=== PATIENT | female | born 1965 | race Caucasian/White ===

== ENCOUNTER 2022-05-28 17:02 | Inpatient (IN) | payer OTHER ==
[~2022-05-28] VITALS: Ht 167.6 cm; Wt 78.0 kg
[2022-05-28 20:53] LABS: HEMOGLOBIN 9.4 gm/dl (12.3-15.3); RED BLOOD COUNT 3.63 M/UL (4.00-5.10); WHITE BLOOD COUNT 9.1 K/UL (4.5-11.0)
[2022-05-28 21:27] LABS: BUN/CREATININE RATIO 13 (0-10)
[2022-05-29 06:00] LABS: HEMOGLOBIN 7.9 gm/dl (12.3-15.3)
[2022-05-29 06:05] LABS: WHITE BLOOD COUNT 6.5 K/UL (4.5-11.0)
[2022-05-29] MEDS ORDERED: FUROSEMIDE80 MG PO (11:22)
[2022-05-29] MEDS ORDERED: ELIQUIS5 MG PO (11:22)
[2022-05-29] MEDS ORDERED: HYDROCHLOROTHIA25 MG PO (11:23)
[2022-05-29] MEDS ORDERED: VITAMIN D21250 MCG PO (11:23)
[2022-05-29] MEDS ORDERED: SODIUM BICARBO650 M1 PO (11:24)
[2022-05-29] MEDS ORDERED: LANTUS SOL100 UNIT/1 SQ (11:25)
[2022-05-29] MEDS ORDERED: PRISTIQ 50 MG T50 MG PO (11:34)
[2022-05-29] MEDS ORDERED: GABAPENTIN400 MG PO (11:35)
[2022-05-29] MEDS ORDERED: FERROUS SULFAT325 MG PO (15:35)
[2022-05-30 06:00] LABS: HEMOGLOBIN 7.1 gm/dl (12.3-15.3); WHITE BLOOD COUNT 6.1 K/UL (4.5-11.0)
[2022-05-30 06:06] LABS: RED BLOOD COUNT 2.69 M/UL (4.00-5.10)
[2022-05-31 04:41] LABS: HEMOGLOBIN 7.4 gm/dl (12.3-15.3); RED BLOOD COUNT 2.82 M/UL (4.00-5.10); WHITE BLOOD COUNT 6.2 K/UL (4.5-11.0)
--- NOTE | 2022-05-31 07:10 | NUR ---
CONTACTED PHARMACY TO VERIFY VACOMYCINE DOSES DUE TO VANC TROUGH OF 9.2. PER JOCEYLNE I WAS INSTRUCTED TO GIVE 0600 DOSE ORDERED AND AFTER ANDERS IN PHARMACY ARRIVES HE WILL VERIFY DOSAGE AND HE WILL ADJUST NEEDED.
--- NOTE | 2022-05-31 17:14 | NUR ---
DRESING CHANGED PERDR ORDER.
[2022-06-01 02:58] LABS: HEMOGLOBIN 7.7 gm/dl (12.3-15.3); RED BLOOD COUNT 2.89 M/UL (4.00-5.10); WHITE BLOOD COUNT 5.1 K/UL (4.5-11.0)
[2022-06-02 04:08] LABS: HEMOGLOBIN 7.5 gm/dl (12.3-15.3); RED BLOOD COUNT 2.87 M/UL (4.00-5.10); WHITE BLOOD COUNT 5.7 K/UL (4.5-11.0)
[2022-06-03 09:26] LABS: HEMOGLOBIN 7.8 gm/dl (12.3-15.3); RED BLOOD COUNT 3.02 M/UL (4.00-5.10); WHITE BLOOD COUNT 5.3 K/UL (4.5-11.0)
[2022-06-04 06:37] LABS: HEMOGLOBIN 7.5 gm/dl (12.3-15.3); RED BLOOD COUNT 2.85 M/UL (4.00-5.10); WHITE BLOOD COUNT 4.7 K/UL (4.5-11.0)
[2022-06-05 06:26] LABS: HEMOGLOBIN 7.5 gm/dl (12.3-15.3); RED BLOOD COUNT 2.92 M/UL (4.00-5.10); WHITE BLOOD COUNT 4.1 K/UL (4.5-11.0)
[2022-06-06 06:48] LABS: HEMOGLOBIN 7.2 gm/dl (12.3-15.3); RED BLOOD COUNT 2.8 M/UL (4.00-5.10); WHITE BLOOD COUNT 4.4 K/UL (4.5-11.0)
[2022-06-06 16:28] LABS: HEMOGLOBIN 7.9 gm/dl (12.3-15.3)
[2022-06-07 05:17] LABS: HEMOGLOBIN 7.3 gm/dl (12.3-15.3); RED BLOOD COUNT 2.83 M/UL (4.00-5.10); WHITE BLOOD COUNT 4.4 K/UL (4.5-11.0)
[2022-06-08 07:20] LABS: HEMOGLOBIN 7.2 gm/dl (12.3-15.3); RED BLOOD COUNT 2.88 M/UL (4.00-5.10); WHITE BLOOD COUNT 3.6 K/UL (4.5-11.0)
[2022-06-09 06:14] LABS: HEMOGLOBIN 7.5 gm/dl (12.3-15.3); RED BLOOD COUNT 2.9 M/UL (4.00-5.10); WHITE BLOOD COUNT 3.7 K/UL (4.5-11.0)
[2022-06-09] MEDS ORDERED: AMLODIPINE BESYL5 MG PO (15:33)
[2022-06-09] MEDS ORDERED: CHRONULAC20 GM/30 M PO (15:33)
[2022-06-09] MEDS ORDERED: STIMULANT LAXA1 EACH PO (15:33)
[2022-06-09] MEDS ORDERED: PROTONIX 40 MG40 M1 PO (15:33)
[2022-06-09] MEDS ORDERED: TRAMADOL HCL50 MG PO (15:43)
[2022-06-09] MEDS ORDERED: INVANZ 1 GM VIAL1 GM IV (15:43)
[2022-06-09] MEDS ORDERED: ZYVOX IV 6600 MG/300 INJ (15:43)
[2022-06-09] MEDS ORDERED: NORVASC10 MG PO (15:53)
[2022-06-10 07:17] LABS: RED BLOOD COUNT 2.69 M/UL (4.00-5.10); WHITE BLOOD COUNT 3.7 K/UL (4.5-11.0)
[2022-06-10 07:18] LABS: HEMOGLOBIN 6.9 gm/dl (12.3-15.3)
[2022-06-10 11:14] LABS: RHEUMATOID ARTHRITIS FACTOR <10.0 IU/mL (<14.0)
[2022-06-10 13:09] LABS: ANTI-CENTROMERE B ANTIBODIES <0.2 AI (0.0-0.9); ANTI-DNA (DS) AB QN 1 IU/mL (0-9); ANTI-JO-1 <0.2 AI (0.0-0.9); ANTICHROMATIN ANTIBODIES <0.2 AI (0.0-0.9); ANTIRIBOSOMAL P ANTIBODIES <0.2 AI (0.0-0.9); ANTISCLERODERMA-70 ANTIBODIES 0.2 AI (0.0-0.9); RNP ANTIBODIES <0.2 AI (0.0-0.9); SJOGREN'S ANTI-SS-A <0.2 AI (0.0-0.9); SJOGREN'S ANTI-SS-B <0.2 AI (0.0-0.9); SMITH ANTIBODIES <0.2 AI (0.0-0.9); SMITH/RNP ANTIBODIES <0.2 AI (0.0-0.9)
[2022-06-10] MEDS ORDERED: TYLENOL325 MG PO (19:41)
[2022-06-11 06:33] LABS: HEMOGLOBIN 8.1 gm/dl (12.3-15.3); WHITE BLOOD COUNT 4.2 K/UL (4.5-11.0)
[2022-06-11 06:37] LABS: RED BLOOD COUNT 3.12 M/UL (4.00-5.10)
--- NOTE | 2022-06-11 23:33 | NUR ---
CALLED REPORT TO [facility]. EMS HAS BEEN CONTACTED, CURRENTLY AWAITING THEIR ARRIVAL.
== END 2022-06-12 00:11 | DRG 299 ==
LOC: ER1 17:02 → MED SURG 4 05-29 02:52 → CDU 05-29 02:52 → MED SURG 4 05-29 07:45
PROVIDERS: Family Medicine; Internal Medicine; Physician Assistant; Registered Nurse; Surgery; ADMIT Internal Medicine
PROC: 0J9R00Z Drainage of Left Foot Subcutaneous Tissue and Fascia with Drainage Device, Open Approach (ICD-10-PCS; principal; 2022-06-02 09:04)
DX: E11.52 Type 2 diabetes mellitus with diabetic peripheral angiopathy with gangrene (principal); A48.0 Gas gangrene; D68.32 Hemorrhagic disorder due to extrinsic circulating anticoagulants; N17.9 Acute kidney failure, unspecified; L03.116 Cellulitis of left lower limb; Z20.822 Contact with and (suspected) exposure to COVID-19; I82.402 Acute embolism and thrombosis of unspecified deep veins of left lower extremity; I12.9 Hypertensive chronic kidney disease with stage 1 through stage 4 chronic kidney disease, or unspecified chronic kidney disease; F41.9 Anxiety disorder, unspecified; B95.62 Methicillin resistant Staphylococcus aureus infection as the cause of diseases classified elsewhere; N18.30 Chronic kidney disease, stage 3 unspecified; D63.1 Anemia in chronic kidney disease; E11.40 Type 2 diabetes mellitus with diabetic neuropathy, unspecified; E55.9 Vitamin D deficiency, unspecified; K21.9 Gastro-esophageal reflux disease without esophagitis; F32.A Depression, unspecified; G47.33 Obstructive sleep apnea (adult) (pediatric); K59.00 Constipation, unspecified; Z79.4 Long term (current) use of insulin; Z86.711 Personal history of pulmonary embolism; Z79.01 Long term (current) use of anticoagulants; Z80.42 Family history of malignant neoplasm of prostate; Z80.1 Family history of malignant neoplasm of trachea, bronchus and lung; Z88.8 Allergy status to other drugs, medicaments and biological substances; Z98.891 History of uterine scar from previous surgery; Z90.49 Acquired absence of other specified parts of digestive tract; Z98.51 Tubal ligation status
CPT/HCPCS: 36415; 36430; 71046; 73564; 73630; 73700; 73718; 80048; 80053; 80202; 81001; 82040; 82550; 82553; 82565; 82607; 82728; 82747; 82962; 83036; 83516; 83540; 83550; 83605; 83921; 84484; 84550; 85014; 85018; 85025; 85027; 85379; 85652; 86140; 86431; 86850; 86900; 86901; 86920; 87040; 87070; 87077; 87086; 87186; 87205; 93971; 96365; 96367; 99285; J0696; J1100; J1335; J1650; J2001; J2020; J2250; J2270; J2405; J2543; J2704; J3010; J3370; J7070; P9016; P9047; U0002

== ENCOUNTER 2022-06-23 10:03 | Inpatient (IN) | payer OTHER ==
[~2022-06-23] VITALS: Ht 167.6 cm; Wt 101.8 kg
[~2022-06-23 10:03] MED LIST: AMLODIPINE BESYL5 MG PO; CHRONULAC20 GM/30 M PO; ELIQUIS5 MG PO; FERROUS SULFAT325 MG PO; FUROSEMIDE80 MG PO; GABAPENTIN400 MG PO; HYDROCHLOROTHIA25 MG PO; INVANZ 1 GM VIAL1 GM IV; LANTUS SOL100 UNIT/1 SQ; NORVASC10 MG PO; PRISTIQ 50 MG T50 MG PO; PROTONIX 40 MG40 M1 PO; SODIUM BICARBO650 M1 PO; STIMULANT LAXA1 EACH PO; TRAMADOL HCL50 MG PO; TYLENOL325 MG PO; ZYVOX IV 6600 MG/300 INJ
[2022-06-23 16:13] LABS: HEMOGLOBIN 9.1 gm/dl (12.3-15.3); RED BLOOD COUNT 3.31 M/UL (4.00-5.10); WHITE BLOOD COUNT 13.8 K/UL (4.5-11.0)
[2022-06-23] MEDS ORDERED: FUROSEMIDE80 MG PO (16:16)
[2022-06-24 05:14] LABS: WHITE BLOOD COUNT 13.9 K/UL (4.5-11.0)
[2022-06-24 05:15] LABS: RED BLOOD COUNT 3.68 M/UL (4.00-5.10)
[2022-06-24] MEDS ORDERED: VITAMIN D21250 MCG PO (11:23)
[2022-06-24] MEDS ORDERED: GABAPENTIN400 MG PO (11:24)
[2022-06-24] MEDS ORDERED: ZOFRAN ODT 4 MG4 MG PO ×2 (11:24→11:25)
[2022-06-24] MEDS ORDERED: MULTIPLE VITAM1 EAC1 PO (11:26)
[2022-06-24] MEDS ORDERED: PROTONIX40 MG PO (11:27)
[2022-06-24] MEDS ORDERED: SENNA-DOCUSATE1 EACH PO (11:28)
[2022-06-24] MEDS ORDERED: LACTULOSE20 GM/30 M PO (11:30)
[2022-06-24] MEDS ORDERED: TYLENOL325 MG PO (11:31)
[2022-06-24] MEDS ORDERED: HUMALOG100 UNIT/1 SC (11:31)
[2022-06-24] MEDS ORDERED: SEMGLEE (Y100 UNIT/1 SQ (11:32)
[2022-06-24] MEDS ORDERED: AMLODIPINE BESY10 MG PO (11:33)
[2022-06-24] MEDS ORDERED: METOPROLOL TART25 MG PO (11:33)
[2022-06-24] MEDS ORDERED: KLONOPIN0.5 MG PO (11:34)
[2022-06-24 17:36] LABS: BODY FLUID SOURCE PERITONEAL
[2022-06-24 17:37] LABS: MONONUCLEAR CELLS 50.7 (75-100); POLYMORPHONUCLEAR % 49.3 (0-25); RBC (AUTOMATED) 5500 (0-100000); WBC (AUTOMATED) 1204 (0-500)
[2022-06-24 17:54] LABS: BODY FLUID SOURCE BRONCH RIGHT LUNG
[2022-06-25 04:56] LABS: HEMOGLOBIN 9.5 gm/dl (12.3-15.3); RED BLOOD COUNT 3.52 M/UL (4.00-5.10)
[2022-06-25 05:15] LABS: WHITE BLOOD COUNT 7.1 K/UL (4.5-11.0)
[2022-06-26 06:43] LABS: WHITE BLOOD COUNT 6.7 K/UL (4.5-11.0)
[2022-06-26 06:47] LABS: RED BLOOD COUNT 2.71 M/UL (4.00-5.10)
[2022-06-27 10:02] LABS: RED BLOOD COUNT 3.28 M/UL (4.00-5.10)
[2022-06-27 10:03] LABS: WHITE BLOOD COUNT 7.9 K/UL (4.5-11.0)
[2022-06-27 20:03] LABS: BUN/CREATININE RATIO 41 (0-10)
[2022-06-28 04:20] LABS: HEMOGLOBIN 8.8 gm/dl (12.3-15.3); RED BLOOD COUNT 3.32 M/UL (4.00-5.10); WHITE BLOOD COUNT 6.9 K/UL (4.5-11.0)
[2022-06-28 04:45] LABS: BUN/CREATININE RATIO 40 (0-10)
[2022-06-29 06:07] LABS: HEMOGLOBIN 9.4 gm/dl (12.3-15.3); RED BLOOD COUNT 3.5 M/UL (4.00-5.10); WHITE BLOOD COUNT 7.5 K/UL (4.5-11.0)
[2022-06-30 03:58] LABS: RED BLOOD COUNT 3.38 M/UL (4.00-5.10); WHITE BLOOD COUNT 7.8 K/UL (4.5-11.0)
[2022-07-01 08:48] LABS: HEMOGLOBIN 9.7 gm/dl (12.3-15.3); RED BLOOD COUNT 3.56 M/UL (4.00-5.10); WHITE BLOOD COUNT 6.3 K/UL (4.5-11.0)
[2022-07-02 06:35] LABS: RED BLOOD COUNT 3.31 M/UL (4.00-5.10); WHITE BLOOD COUNT 5.1 K/UL (4.5-11.0)
[2022-07-03 07:20] LABS: HEMOGLOBIN 8.8 gm/dl (12.3-15.3); RED BLOOD COUNT 3.35 M/UL (4.00-5.10); WHITE BLOOD COUNT 4.5 K/UL (4.5-11.0)
--- NOTE | 2022-07-03 18:30 | NUR ---
1556- NOTIFIED DR. MAJANO OF POTASSIUM 5.8. ORDER TO NOTIFIED DR GOODMAN.
--- NOTE | 2022-07-03 19:03 | NUR ---
1630- NOTIFIED DR GOODMAN OF POTASSIUM LEVEL 5.8. NO NEW ORDERS.
--- NOTE | 2022-07-03 19:04 | NUR ---
1634- NOTIFIED DR. MAJANO OF NO NEW ORDERS FROM DR. GOODMAN. NEW ORDERS NOTED.
[2022-07-04 07:03] LABS: HEMOGLOBIN 8.3 gm/dl (12.3-15.3); RED BLOOD COUNT 3.08 M/UL (4.00-5.10); WHITE BLOOD COUNT 5.6 K/UL (4.5-11.0)
--- NOTE | 2022-07-04 07:27 | NUR ---
CRITICAL POTASSIUM 6.1 CALLED PER LAB. BERNA JOHNSON MADE AWARE OF POTASSIUM 6.1 AFTER 2 DOSES OF KAYEXLATE. PREVIOUS POTASSIUM 7.3. NO NEW ORDERS AT THIS TIME.
[2022-07-05 04:44] LABS: HEMOGLOBIN 8.5 gm/dl (12.3-15.3); RED BLOOD COUNT 3.13 M/UL (4.00-5.10); WHITE BLOOD COUNT 5.5 K/UL (4.5-11.0)
[2022-07-06 07:01] LABS: HEMOGLOBIN 8.3 gm/dl (12.3-15.3); RED BLOOD COUNT 3.05 M/UL (4.00-5.10); WHITE BLOOD COUNT 4.7 K/UL (4.5-11.0)
[2022-07-06] MEDS ORDERED: FUROSEMIDE20 MG PO (09:25)
[2022-07-07 06:23] LABS: HEMOGLOBIN 9.1 gm/dl (12.3-15.3); WHITE BLOOD COUNT 4.5 K/UL (4.5-11.0)
[2022-07-07 06:39] LABS: RED BLOOD COUNT 3.38 M/UL (4.00-5.10)
[2022-07-07] MEDS ORDERED: LOKELMA5 GM PO (09:05)
[2022-07-07] MEDS ORDERED: BUMETANIDE1 MG PO (09:05)
--- NOTE | 2022-07-07 12:08 | NUR ---
1208- PT OXYGEN DROPPED TO 87% ON ROOM AIR. PT WAS PLACED ON 1L NASUAL CANNULA, OXYGEN 97% WITH RECHECK.
== END 2022-07-07 15:17 | disposition home or self-care (01) | DRG 871 ==
LOC: CCU 15:16 → M/S 07-01 18:06
PROVIDERS: Internal Medicine; Internal Medicine Nephrology; Internal Medicine Pulmonary Disease; ADMIT Internal Medicine
PROC: 5A09357 Assistance with Respiratory Ventilation, Less than 24 Consecutive Hours, Continuous Positive Airway Pressure (ICD-10-PCS; 2022-06-23)
PROC: 0BH17EZ Insertion of Endotracheal Airway into Trachea, Via Natural or Artificial Opening (ICD-10-PCS; principal; 2022-06-24)
PROC: 5A1935Z Respiratory Ventilation, Less than 24 Consecutive Hours (ICD-10-PCS; 2022-06-24)
PROC: 0B9D8ZX Drainage of Right Middle Lung Lobe, Via Natural or Artificial Opening Endoscopic, Diagnostic (ICD-10-PCS; 2022-06-24)
PROC: B24BZZZ Ultrasonography of Heart with Aorta (ICD-10-PCS; 2022-06-24)
PROC: 0W993ZZ Drainage of Right Pleural Cavity, Percutaneous Approach (ICD-10-PCS; 2022-06-24)
PROC: 05HM33Z Insertion of Infusion Device into Right Internal Jugular Vein, Percutaneous Approach (ICD-10-PCS; 2022-06-24)
PROC: B543ZZA Ultrasonography of Right Jugular Veins, Guidance (ICD-10-PCS; 2022-06-24)
PROC: 3E043XZ Introduction of Vasopressor into Central Vein, Percutaneous Approach (ICD-10-PCS; 2022-06-24)
PROC: 30233N1 Transfusion of Nonautologous Red Blood Cells into Peripheral Vein, Percutaneous Approach (ICD-10-PCS; 2022-06-26)
PROC: 5A09357 Assistance with Respiratory Ventilation, Less than 24 Consecutive Hours, Continuous Positive Airway Pressure (ICD-10-PCS; 2022-06-26)
PROC: 5A1935Z Respiratory Ventilation, Less than 24 Consecutive Hours (ICD-10-PCS; 2022-06-27)
PROC: 5A09357 Assistance with Respiratory Ventilation, Less than 24 Consecutive Hours, Continuous Positive Airway Pressure (ICD-10-PCS; 2022-06-27)
PROC: 5A09357 Assistance with Respiratory Ventilation, Less than 24 Consecutive Hours, Continuous Positive Airway Pressure (ICD-10-PCS; 2022-06-28)
PROC: 5A09357 Assistance with Respiratory Ventilation, Less than 24 Consecutive Hours, Continuous Positive Airway Pressure (ICD-10-PCS; 2022-06-29)
PROC: 5A09357 Assistance with Respiratory Ventilation, Less than 24 Consecutive Hours, Continuous Positive Airway Pressure (ICD-10-PCS; 2022-06-30)
PROC: 5A09357 Assistance with Respiratory Ventilation, Less than 24 Consecutive Hours, Continuous Positive Airway Pressure (ICD-10-PCS; 2022-07-02)
PROC: 5A09357 Assistance with Respiratory Ventilation, Less than 24 Consecutive Hours, Continuous Positive Airway Pressure (ICD-10-PCS; 2022-07-03)
PROC: 5A09357 Assistance with Respiratory Ventilation, Less than 24 Consecutive Hours, Continuous Positive Airway Pressure (ICD-10-PCS; 2022-07-04)
PROC: 5A09357 Assistance with Respiratory Ventilation, Less than 24 Consecutive Hours, Continuous Positive Airway Pressure (ICD-10-PCS; 2022-07-05)
DX: A41.9 Sepsis, unspecified organism (principal); G93.41 Metabolic encephalopathy; J18.9 Pneumonia, unspecified organism; R65.21 Severe sepsis with septic shock; J80 Acute respiratory distress syndrome; N17.9 Acute kidney failure, unspecified; E11.52 Type 2 diabetes mellitus with diabetic peripheral angiopathy with gangrene; L03.116 Cellulitis of left lower limb; I96 Gangrene, not elsewhere classified; I13.0 Hypertensive heart and chronic kidney disease with heart failure and stage 1 through stage 4 chronic kidney disease, or unspecified chronic kidney disease; I50.32 Chronic diastolic (congestive) heart failure; E11.22 Type 2 diabetes mellitus with diabetic chronic kidney disease; D50.9 Iron deficiency anemia, unspecified; E11.40 Type 2 diabetes mellitus with diabetic neuropathy, unspecified; E87.70 Fluid overload, unspecified; E11.65 Type 2 diabetes mellitus with hyperglycemia; N18.32 Chronic kidney disease, stage 3b; E11.621 Type 2 diabetes mellitus with foot ulcer; R53.81 Other malaise; R80.9 Proteinuria, unspecified; E66.01 Morbid (severe) obesity due to excess calories; Z98.51 Tubal ligation status; Z98.890 Other specified postprocedural states; Z90.49 Acquired absence of other specified parts of digestive tract; Z79.4 Long term (current) use of insulin; Z79.899 Other long term (current) drug therapy; Z88.8 Allergy status to other drugs, medicaments and biological substances; Z80.42 Family history of malignant neoplasm of prostate; Z80.1 Family history of malignant neoplasm of trachea, bronchus and lung; Z86.718 Personal history of other venous thrombosis and embolism; Z68.36 Body mass index [BMI] 36.0-36.9, adult
CPT/HCPCS: ECHO; 0240U; 31500; 36415; 36600; 71045; 74018; 80048; 80053; 80202; 81001; 82550; 82553; 82728; 82803; 82962; 83540; 83550; 83605; 83615; 83735; 83880; 83986; 84100; 84484; 85007; 85025; 85027; 85384; 85610; 85730; 86140; 86850; 86900; 86901; 86920; 87015; 87040; 87070; 87116; 87205; 87206; 87252; 89051; 92526; 92610; 93005; 93306; 94003; 94640; 94660; 94664; 94760; 97110; 97110-GP-CQ; 97116; 97116-GP-CQ; 97162; 97165; 97530; 97530-GP-CQ; 97535; C1751; C9113; J0360; J0696; J1200; J1205; J1644; J1940; J2185; J2248; J2270; J2405; J2704; J2920; J3370; J7040; J7070; P9016; P9047; Q5106

== ENCOUNTER 2022-07-09 12:55 | Inpatient (IN) | payer OTHER ==
[~2022-07-09] VITALS: Ht 167.6 cm; Wt 83.9 kg
[~2022-07-09 12:55] MED LIST changes: +AMLODIPINE BESY10 MG PO; +BUMETANIDE1 MG PO; +FUROSEMIDE20 MG PO; +HUMALOG100 UNIT/1 SC; +KLONOPIN0.5 MG PO; +LACTULOSE20 GM/30 M PO; +LOKELMA5 GM PO; +METOPROLOL TART25 MG PO; +MULTIPLE VITAM1 EAC1 PO; +PROTONIX40 MG PO; +SEMGLEE (Y100 UNIT/1 SQ; +SENNA-DOCUSATE1 EACH PO; +VITAMIN D21250 MCG PO; +ZOFRAN ODT 4 MG4 MG PO
[2022-07-09 16:48] LABS: HEMOGLOBIN 8.4 gm/dl (12.3-15.3); RED BLOOD COUNT 3.08 M/UL (4.00-5.10); WHITE BLOOD COUNT 4.2 K/UL (4.5-11.0)
[2022-07-10 04:52] LABS: HEMOGLOBIN 8.6 gm/dl (12.3-15.3); RED BLOOD COUNT 3.18 M/UL (4.00-5.10); WHITE BLOOD COUNT 3.3 K/UL (4.5-11.0)
[2022-07-10 05:12] LABS: BUN/CREATININE RATIO 35 (0-10)
[2022-07-11 07:36] LABS: HEMOGLOBIN 7.8 gm/dl (12.3-15.3); RED BLOOD COUNT 2.9 M/UL (4.00-5.10); WHITE BLOOD COUNT 3.4 K/UL (4.5-11.0)
[2022-07-13 02:08] LABS: HEMOGLOBIN 8.6 gm/dl (12.3-15.3); RED BLOOD COUNT 3.14 M/UL (4.00-5.10); WHITE BLOOD COUNT 2.7 K/UL (4.5-11.0)
[2022-07-15 02:19] LABS: HEMOGLOBIN 8.2 gm/dl (12.3-15.3); RED BLOOD COUNT 3.02 M/UL (4.00-5.10); WHITE BLOOD COUNT 2.5 K/UL (4.5-11.0)
[2022-07-16 11:50] LABS: HEMOGLOBIN 8.2 gm/dl (12.3-15.3); RED BLOOD COUNT 3.06 M/UL (4.00-5.10); WHITE BLOOD COUNT 2.4 K/UL (4.5-11.0)
--- NOTE | 2022-07-17 00:27 | NUR ---
07/16/2022 1900 PT STATES THAT SHE HAS TAKEN NORCO AND LORATAB WITHOUT HAVING A REACTION TO THE MEDICATION. PHARMACY WAS NOTIFIED OF PATIENT STATEMENT.
[2022-07-17 02:30] LABS: HEMOGLOBIN 7.9 gm/dl (12.3-15.3); RED BLOOD COUNT 2.96 M/UL (4.00-5.10); WHITE BLOOD COUNT 2.6 K/UL (4.5-11.0)
--- NOTE | 2022-07-17 17:46 | NUR ---
DRESSING TO LEFT FOOT CHANGED PER ORDER. PT TOLERATED WELL. NO DRAINAGE NOTED.
[2022-07-17 18:22] LABS: HEMOGLOBIN 7.4 gm/dl (12.3-15.3); RED BLOOD COUNT 2.79 M/UL (4.00-5.10); WHITE BLOOD COUNT 2.6 K/UL (4.5-11.0)
--- NOTE | 2022-07-18 07:43 | NUR ---
PT LEFT FOR SURGERY WITH OR NURSE ANTONIO RN. PT STABLE ON DEPARTURE WITH SON AT BEDSIDE.
[2022-07-18 07:44] LABS: HEMOGLOBIN 7.1 gm/dl (12.3-15.3)
[2022-07-18 14:40] LABS: HEMOGLOBIN 8.6 gm/dl (12.3-15.3)
[2022-07-18 14:46] LABS: RED BLOOD COUNT 3.16 M/UL (4.00-5.10); WHITE BLOOD COUNT 3.5 K/UL (4.5-11.0)
[2022-07-18 20:11] LABS: HEMOGLOBIN 8.2 gm/dl (12.3-15.3); RED BLOOD COUNT 2.89 M/UL (4.00-5.10); WHITE BLOOD COUNT 3.3 K/UL (4.5-11.0)
[2022-07-19 05:20] LABS: HEMOGLOBIN 7.4 gm/dl (12.3-15.3); RED BLOOD COUNT 2.67 M/UL (4.00-5.10); WHITE BLOOD COUNT 2.8 K/UL (4.5-11.0)
[2022-07-19 16:17] LABS: HEMOGLOBIN 8.1 gm/dl (12.3-15.3)
[2022-07-20 06:48] LABS: HEMOGLOBIN 7.6 gm/dl (12.3-15.3); RED BLOOD COUNT 2.69 M/UL (4.00-5.10)
[2022-07-20 06:49] LABS: WHITE BLOOD COUNT 3.8 K/UL (4.5-11.0)
[2022-07-20 14:08] LABS: HEMOGLOBIN 7.6 gm/dl (12.3-15.3); RED BLOOD COUNT 2.68 M/UL (4.00-5.10); WHITE BLOOD COUNT 3.5 K/UL (4.5-11.0)
[2022-07-21 05:10] LABS: HEMOGLOBIN 7.4 gm/dl (12.3-15.3); RED BLOOD COUNT 2.65 M/UL (4.00-5.10); WHITE BLOOD COUNT 3.2 K/UL (4.5-11.0)
[2022-07-22 02:04] LABS: HEMOGLOBIN 7.2 gm/dl (12.3-15.3); RED BLOOD COUNT 2.5 M/UL (4.00-5.10); WHITE BLOOD COUNT 2.8 K/UL (4.5-11.0)
[2022-07-23 02:58] LABS: HEMOGLOBIN 8.1 gm/dl (12.3-15.3); WHITE BLOOD COUNT 2.7 K/UL (4.5-11.0)
[2022-07-23 03:15] LABS: RED BLOOD COUNT 2.86 M/UL (4.00-5.10)
[2022-07-24 02:51] LABS: HEMOGLOBIN 8.3 gm/dl (12.3-15.3); RED BLOOD COUNT 2.99 M/UL (4.00-5.10); WHITE BLOOD COUNT 2.8 K/UL (4.5-11.0)
[2022-07-24] MEDS ORDERED: LANTUS INS100 UTS/M1 SQ (09:00)
[2022-07-24] MEDS ORDERED: ZOLPIDEM TARTRAT5 MG PO (09:00)
[2022-07-24] MEDS ORDERED: HYDROCODON-ACE1 EAC6 PO ×2 (09:00→11:42)
[2022-07-24] MEDS ORDERED: FOLIC ACID 1 MG1 MG PO (09:00)
[2022-07-24] MEDS ORDERED: HUMALOG 10100 UNITS/ SC (09:00)
[2022-07-24] MEDS ORDERED: GABAPENTIN100 MG PO (09:00)
[2022-07-25 01:52] LABS: HEMOGLOBIN 8.1 gm/dl (12.3-15.3); RED BLOOD COUNT 2.86 M/UL (4.00-5.10); WHITE BLOOD COUNT 2.8 K/UL (4.5-11.0)
== END 2022-07-25 17:20 | DRG 264 ==
LOC: PROG CARE 12:55 → CCU 07-18 12:00 → PROG CARE 07-21 21:21 → M/S 07-25 10:14
PROVIDERS: Internal Medicine; Internal Medicine Infectious Disease; Internal Medicine Nephrology; Physician Assistant; Physician Assistant Medical; ADMIT Internal Medicine
PROC: 0JBR0ZZ Excision of Left Foot Subcutaneous Tissue and Fascia, Open Approach (ICD-10-PCS; 2022-07-16)
PROC: 30233N1 Transfusion of Nonautologous Red Blood Cells into Peripheral Vein, Percutaneous Approach (ICD-10-PCS; principal; 2022-07-17)
DX: E11.52 Type 2 diabetes mellitus with diabetic peripheral angiopathy with gangrene (principal); A48.0 Gas gangrene; I50.33 Acute on chronic diastolic (congestive) heart failure; G92.8 Other toxic encephalopathy; J96.21 Acute and chronic respiratory failure with hypoxia; K68.12 Psoas muscle abscess; N17.0 Acute kidney failure with tubular necrosis; I13.0 Hypertensive heart and chronic kidney disease with heart failure and stage 1 through stage 4 chronic kidney disease, or unspecified chronic kidney disease; D61.818 Other pancytopenia; L03.116 Cellulitis of left lower limb; L03.115 Cellulitis of right lower limb; M86.172 Other acute osteomyelitis, left ankle and foot; D62 Acute posthemorrhagic anemia; E11.40 Type 2 diabetes mellitus with diabetic neuropathy, unspecified; Z20.822 Contact with and (suspected) exposure to COVID-19; T42.4X5A Adverse effect of benzodiazepines, initial encounter; G89.29 Other chronic pain; E11.22 Type 2 diabetes mellitus with diabetic chronic kidney disease; E87.5 Hyperkalemia; K59.09 Other constipation; M54.50 Low back pain, unspecified; E66.01 Morbid (severe) obesity due to excess calories; R58 Hemorrhage, not elsewhere classified; E11.65 Type 2 diabetes mellitus with hyperglycemia; Z98.890 Other specified postprocedural states; E87.6 Hypokalemia; N18.32 Chronic kidney disease, stage 3b; R31.9 Hematuria, unspecified; E11.621 Type 2 diabetes mellitus with foot ulcer; D72.819 Decreased white blood cell count, unspecified; T45.515A Adverse effect of anticoagulants, initial encounter; Z79.01 Long term (current) use of anticoagulants; Z88.8 Allergy status to other drugs, medicaments and biological substances; Z80.1 Family history of malignant neoplasm of trachea, bronchus and lung; Z79.899 Other long term (current) drug therapy; Z80.42 Family history of malignant neoplasm of prostate; Z98.51 Tubal ligation status; Z86.718 Personal history of other venous thrombosis and embolism; Z90.49 Acquired absence of other specified parts of digestive tract; Z79.4 Long term (current) use of insulin; Z68.34 Body mass index [BMI] 34.0-34.9, adult
CPT/HCPCS: 0240U; 36415; 36600; 70450; 71045; 72170; 72195; 73718; 80048; 80053; 80307; 81001; 82140; 82550; 82553; 82803; 82962; 83735; 83880; 84439; 84443; 84484; 85014; 85018; 85025; 85027; 85520; 85610; 85652; 86140; 86850; 86900; 86901; 86920; 87040; 87070; 87086; 87205; 92610; 93005; 93970; 94760; 97116-GP-CQ; 97161; 97530; J0360; J0878; J1120; J1170; J1205; J1335; J1642; J1650; J1940; J2250; J2405; J2704; J3010; J7050; P9016; P9047; U0002